=== PATIENT | male | born 1970 | race Caucasian/White ===

== ENCOUNTER 2019-12-01 07:28 | Emergency (ER) | payer OTHER, MEDICAID, SELFPAY ==
--- NOTE | 2019-12-01 07:34 | ED.GENADULT ---
HPI - General Adult General Chief complaint: Weakness Stated complaint: Seizure Time Seen by Provider: 12/01/19 07:34 History of Present Illness HPI narrative: 49-year-old gentleman who states that he may have a very distant history of a seizure disorder with no other current medical problems on no medications and denies drug and alcohol use [place] was feeling a little cold in his feet were tingly and he was weak. He called medics describing having a seizure and was brought to the emergency room for further evaluation. When asked specifically if there were of issues or concerns that precipitated the visit that he was to discussed, he says ?not really, I guess thats it? Related Data Allergies Allergy/AdvReac Type Severity Reaction Status Date / Time No Known Drug Allergies Allergy Verified 12/01/19 07:40 Review of Systems Review of Systems Narrative: insomnia, homelessness, Denies ? fever ? cough ? cold ? chills ? chest pain ? dyspnea ? orthopnea ? wheezing ? abdominal pain ? change to bowel or bladder habits ? nausea vomiting ? skin changes ? rashes states no alcohol, no recreational drugs including opioids/meth/THC states no seizure for years Patient History Medical History (Updated 12/01/19 @ 07:49 by Nancy Donovan MD) Insomnia (Acute) Exam Narrative Exam Narrative: General: Healthy appearing, in no acute distress. Able to give a complete and coherent history. Well-nourished well-developed HEENT: Moist mucous membranes, normal sclera with reactive pupils, Neck: No JVD, supple Respiratory: Lungs are clear to auscultation, no wheezing no rales no rhonchi. Full and symmetrical air movement Cardiac: Regular rate and rhythm no murmurs no bruits Abdomen: Soft nontender good bowel tones, no flank pain Skin: Warm and dry, no rashes Neurologic: Grossly neurologically intact with no obvious asymmetries or abnormalities, 2+ reflexes bicipital and patellar bilaterally Extremities: No trauma, well perfused Psych: Cooperative, without any evidence of auditory or visual hallucinations, normal speech fluency and thought content Initial Vital Signs Initial Vital Signs: Vital Signs Temperature 98.6 F 12/01/19 07:36 Pulse Rate 63 12/01/19 07:36 Respiratory Rate 16 12/01/19 07:36 Blood Pressure 131/94 H 12/01/19 07:36 Pulse Oximetry 96 12/01/19 07:36 Medical Decision Making Medical Records Medical records reviewed: Yes I reviewed the patient's medical records. Lab Data Lab results narrative: Blood sugar of 92 MDM Narrative Medical decision making narrative: I am still unclear as to why this gentleman actually felt it was appropriate to call an ambulance because he was tired this morning after not sleeping all night. With multiple different avenues of questioning as well as physical exam there is no evidence of acute medical issues that need any type of additional workup. There is no obvious psychiatric abnormality any seems calm and very appropriate at this time. He is safe for home discharge Discharge Plan Departure Patient Disposition: Home Clinical Impression: Insomnia Qualifiers: Insomnia type: unspecified Qualified Code(s): G47.00 - Insomnia, unspecified Fatigue Qualifiers: Fatigue type: unspecified Qualified Code(s): R53.83 - Other fatigue Discharge Date/Time: 12/01/19 08:15 Instructions: DI for Insomnia Activity Restrictions/Additional Instructions: If your finding that you are getting worse with either fever, cough, vomiting, diarrhea or other symptoms that require medical attention, please return to the emergency department
[2019-12-01 07:36] VITALS: BP 131/94; PULSE 63; RESP 16; TEMP 37; O2SAT 96; BMI 24.3
--- NOTE | 2019-12-01 07:43 | PC.NURSE ---
Patient states he last ate around 1700 last night, was up all night at [employer]. States he is some what of an insomniac. Denies drugs or ETOH. Has history of epilepsy, has not had seizure in several years. Does not believe he had a seizure today.
== END 2019-12-01 08:15 | disposition home or self-care (01) ==
LOC: ED 08:14
PROVIDERS: Emergency Provider Emergency Medicine
DX: G47.00 Insomnia, unspecified (principal); R53.83 Other fatigue
CPT/HCPCS: 99281